=== PATIENT | male | born 1990 ===

== ENCOUNTER 2019-03-04 20:55 | Emergency (ER) | payer OTHER ==
[~2019-03-04] VITALS: Ht 182.9 cm; Wt 62.9 kg
[2019-03-04 21:10] VITALS: BP 139/86
--- NOTE | 2019-03-04 23:56 | NUR ---
Pt returned call I placed earlier. Expressed our concern for his well being. Pt. reports he didn't need to be seen tonight, and would return if needed.
== END 2019-03-04 23:55 | disposition left against medical advice (07) ==
LOC: ER 20:56
DX: R45.851 Suicidal ideations (principal); Z53.21 Procedure and treatment not carried out due to patient leaving prior to being seen by health care provider